=== PATIENT | male | born 1940 | race African-American/Black ===

== ENCOUNTER 2017-10-08 14:38 | Emergency (ER) | payer MEDICARE ==
--- NOTE | 2017-10-08 15:48 | ER Document Report ---
ED Medical Screen (RME) - General Chief Complaint: Abscess Stated Complaint: POSSIBLE CYST ON NECK Time Seen by Provider: 10/08/17 15:45 Notes: 77-year-old male patient boil draining on the back of his neck for the past 4 days. This been a problem for the last 7 years by history. He has not been running a fever. I have greeted and performed a rapid initial assessment of this patient. A comprehensive ED assessment and evaluation of the patient, analysis of test results and completion of the medical decision making process will be conducted by additional ED providers. TRAVEL OUTSIDE OF THE [place] IN LAST 30 DAYS: No - Related Data Allergies/Adverse Reactions: No Known Allergies Allergy (Verified 10/08/17 14:40) Past Medical History - Social History Chew tobacco use (# tins/day): No Frequency of alcohol use: None Drug Abuse: None - Past Medical History Cardiac Medical History: Reports: Hx Hypertension Neurological Medical History: Reports: Hx Seizures Endocrine Medical History: Reports: Hx Hyperthyroidism Renal/ Medical History: Denies: Hx Peritoneal Dialysis Past Surgical History: Reports: Hx Thyroid Surgery - removal - Immunizations Hx Diphtheria, Pertussis, Tetanus Vaccination: No Physical Exam - Vital signs Vitals: Temp Pulse Resp BP Pulse Ox 98.7 F 91 15 155/88 H 97 10/08/17 15:29 10/08/17 15:29 10/08/17 15:29 10/08/17 15:29 10/08/17 15:29 Course - Vital Signs Vital signs: Temp Pulse Resp BP Pulse Ox 98.7 F 91 15 155/88 H 97 10/08/17 15:29 10/08/17 15:29 10/08/17 15:29 10/08/17 15:29 10/08/17 15:29
[2017-10-08] MEDS ORDERED: LIDOCAINE 1% INJ-PF (10 MG/ML) 30 ML SDV INJ ONE (16:59)
--- NOTE | 2017-10-08 17:00 | ER Document Report ---
ED General - General Chief Complaint: Abscess Stated Complaint: POSSIBLE CYST ON NECK Time Seen by Provider: 10/08/17 15:45 Mode of Arrival: Ambulatory Information source: Patient Notes: Patient is a 77 year old AA male who presents with "cyst" to posterior neck that started draining thick yellow pus yesterday. He reports having bump there since 2010. Denies fever, chills, neck pain/stiffness, headache, dizziness. He is not a diabetic, he denies any history of MRSA or previous I&D. TRAVEL OUTSIDE OF THE [place] IN LAST 30 DAYS: No - Related Data Allergies/Adverse Reactions: No Known Allergies Allergy (Verified 10/08/17 14:40) Past Medical History - General Information source: Patient - Social History Smoking Status: Never Smoker Chew tobacco use (# tins/day): No Frequency of alcohol use: None Drug Abuse: None Family History: Reviewed & Not Pertinent Patient has suicidal ideation: No Patient has homicidal ideation: No - Past Medical History Cardiac Medical History: Reports: Hx Hypertension Neurological Medical History: Reports: Hx Seizures Endocrine Medical History: Reports: Hx Hyperthyroidism Renal/ Medical History: Denies: Hx Peritoneal Dialysis Past Surgical History: Reports: Hx Thyroid Surgery - removal - Immunizations Hx Diphtheria, Pertussis, Tetanus Vaccination: No Review of Systems - Review of Systems Constitutional: See HPI EENT: No symptoms reported Cardiovascular: No symptoms reported Respiratory: No symptoms reported Gastrointestinal: No symptoms reported Genitourinary: No symptoms reported Male Genitourinary: No symptoms reported Musculoskeletal: No symptoms reported Skin: See HPI Hematologic/Lymphatic: No symptoms reported Neurological/Psychological: No symptoms reported Physical Exam - Vital signs Vitals: Temp Pulse Resp BP Pulse Ox 98.7 F 91 15 155/88 H 97 10/08/17 15:29 10/08/17 15:29 10/08/17 15:29 10/08/17 15:29 10/08/17 15:29 - Notes Notes: PHYSICAL EXAM: CONSTITUTIONAL: Alert and oriented, well-appearing and in no acute distress. HENT: Normocephalic, atraumatic. Trachea midline. Uvula midline. Moist mucous membranes. EYES: Pupils equal round and reactive to light, EOM intact. Sclera anicteric, conjunctiva are normal. No entrapment. NECK: supple without lymphadenopathy. No midline tenderness or paraspinous muscle spasms. No step-offs or deformities. ROM intact. HEART: Regular rate and rhythm without murmurs. LUNGS: CTAB and equal. No wheezes, rales or rhonchi. EXTREMITIES: Normal range of motion, no pitting edema. No cyanosis. Cap Refill < 3 seconds. NEURO: Cranial nerves grossly intact. Normal sensory/motor exams. PSYCH: Normal mood, normal affect. SKIN: Warm and dry. Normal turgor. 1 cm round fluctuant area to posterior neck Course - Re-evaluation Re-evalutation: 10/08/17 16:58 Patient seen and examined. 1 cm round fluctuant area to posterior neck. VSS, does not appear septic. I&D performed, patient tolerated, iodoform gauze left in place. Wound culture pending. Will treat with abx. Advised to return in 2 days for wound check. At this time, will discharge with return precautions and follow-up recommendations. Verbal discharge instructions given at the bedside and opportunity for questions given. Medication warnings reviewed. Patient is in agreement with this plan and has verbalized understanding of return precautions and the need for primary care follow-up in the next 24-72 hours. - Vital Signs Vital signs: Temp Pulse Resp BP Pulse Ox 98.7 F 91 15 155/88 H 97 10/08/17 15:29 10/08/17 15:29 10/08/17 15:29 10/08/17 15:29 10/08/17 15:29 Procedures - Incision and Drainage Right Posterior Neck Type: Simple Anesthetic type: 1% Lidocaine mL's of anesthetic: 5 Blade size: 11 I&D procedure: Betadine prep applied, Iodoform packing placed, Sterile dressing applied Incision Method: Incision made by scalpel Amount/type of drainage: sanguinous 1 cc Notes: 10/08/17 18:28 Wound probed and loculations broken up. Wound culture obtained. Discharge - Discharge Clinical Impression: Abscess Condition: Stable Disposition: HOME, SELF-CARE Additional Instructions: ABSCESS: You have an abscess (boil). This a pus-forming infection, usually due to staph. Some boils may be left to drain on their own, but most require lancing. From the time the tender lump first appears, it may be three or four days before the abscess is ready to jazmyne. Local heat and rest help at this stage of treatment. An antibiotic may prevent spread of the infection. Once the abscess is opened, packing may be placed into it. This is done so pus is not sealed inside by premature closure of the cavity. The packing will be removed at your follow-up visit or you may be advised to remove it yourself at home. Sometimes this packing must be replaced a few times during healing. The wound will heal with surprisingly little scar. Depending on the size and location of an abscess, healing can take one to four weeks. You may shower and wash the area around the incision site two or three times a day. Antibiotics may be prescribed, but are usually not necessary after an abscess has been drained. If you develop fever, chills, worsening pain, or increasing swelling in the area, call the doctor or return immediately. POST INCISION AND DRAINAGE: You have had an incision made to allow drainage of an abscess. The incision must remain open so that pus and debris can drain from the wound. If the abscess cavity is large, packing is placed. This keeps the tissues from collapsing and trapping pus inside, while the body shrinks the cavity. The packing may need to be replaced every day or two. The physician will instruct you on the packing. Keep a bulky dressing over the area. Replace it if it becomes saturated with blood or pus. Do not disturb the packing (if present). You may shower and cleanse the area with gentle soap and warm water two or three times a day. Local warmth may be soothing, and may promote faster healing. Return if you develop high fever or chills, or if you note spreading redness, increasing swelling, or increasing tenderness. MRSA CELLULITIS: You have an infection of your skin and underlying soft tissues called cellulitis. This is due to bacteria, which can enter through any break in the skin, or even through an irritated hair follicle. Untreated, cellulitis will usually worsen and may form an abscess which requires draining. Although many bacterial organisms can cause cellulitis and abscess formations, the most likely bacteria is Methicillin-Resistant Staph Aureus, or MRSA for short. Antibiotics are required. Usually, warm packs or warm soaks, and elevation of the infected area are recommended. You should start getting better within 24 to 36 hours. Most infections respond quickly to the right medication. Follow-up care is important, however, to check for abscess (boil) formation, unsuspected foreign body, or resistant infection. If you develop fever, chills, or if the area of infection is becoming rapidly more swollen or painful, call the doctor at once. ORAL NARCOTIC MEDICATION: You have been given a prescription for pain control. This medication is a narcotic. It's best taken with food, as nausea can result if taken on an empty stomach. Don't operate machinery or drive within six hours of taking this medication. Do not combine this medicine with alcohol, or with any medication which can cause sedation (such as cold tablets or sleeping pills) unless you get permission from the physician. Narcotics tend to cause constipation. If possible, drink plenty of fluids and eat a diet high in fiber and fruits. CEPHALEXIN: The antibiotic you've been prescribed is a member of the cephalosporin class. This type of antibiotic covers a wide variety of infections, including those of the skin, lungs, and urinary tract. It's useful for staph infections. This antibiotic is slightly similar to the penicillin family. In rare cases , a person who is allergic to penicillin will also be allergic to this medication. If you have had a severe allergic reaction to penicillin, and have not taken this antibiotic since that time, notify your doctor. Antibiotics which cover many germs ("broad spectrum" antibiotics) are more likely to cause diarrhea or "yeast" infections. Women prone to vaginal yeast problems may suffer an attack after taking this antibiotic. In infants, oral thrush (white spots "stuck" on the cheek) or yeast diaper rash may result. See your doctor if these problems occur. Call at once if you develop itching, hives , shortness of breath, or lightheadedness. FOLLOW-UP CARE: Most simple abscesses will not require a follow up visit. If you had packing placed in the abscess, remove it as instructed by the physician. If you have been referred to a physician for follow-up care, call the physicians office for an appointment as you were instructed or within the next two days. If you experience worsening or a significant change in your symptoms, return to the Emergency Department at any time for re-evaluation. Prescriptions: Cephalexin Monohydrate [Keflex 500 mg Capsule] 500 mg PO Q6H 7 Days capsule Hydrocodone/Acetaminophen [Belcher 5-325 mg Tablet] 1 tab PO Q6H PRN #10 tablet PRN Reason: Forms: Elevated Blood Pressure
[2017-10-08 19:04] VITALS: BP 124/91
== END 2017-10-08 19:04 | disposition home or self-care (01) ==
LOC: ER 14:38
PROC: 0H94XZZ Drainage of Neck Skin, External Approach (ICD-10-PCS; principal; 2017-10-08)
DX: L02.11 Cutaneous abscess of neck (principal); I10 Essential (primary) hypertension
CPT/HCPCS: 99283; 87070; 87205; 87075; 87077; 10060; A6266; J3490

== ENCOUNTER 2018-06-21 09:23 | Emergency (ER) | payer MEDICARE ==
--- NOTE | 2018-06-21 09:38 | ER Document Report ---
ED Medical Screen (RME) - General Chief Complaint: Probable Seizure Stated Complaint: POSSIBLE SEIZURE Time Seen by Provider: 06/21/18 09:34 Mode of Arrival: Wheelchair Information source: Patient, Relative Notes: Patient presented to the ED with shortness of breath. Patients O2 sats was in the 80's. He denies any chest pain or abdominal pain. He has history of seizures but there was no seizure activity today. I have greeted and performed a rapid initial assessment of this patient. A comprehensive ED assessment and evaluation of the patient, analysis of test results and completion of the medical decision making process will be conducted by additional ED providers. TRAVEL OUTSIDE OF THE [place] IN LAST 30 DAYS: No - Related Data Allergies/Adverse Reactions: No Known Allergies Allergy (Verified 06/21/18 09:24) Past Medical History - Past Medical History Cardiac Medical History: Reports: Hx Hypertension Neurological Medical History: Reports: Hx Seizures Endocrine Medical History: Reports: Hx Hyperthyroidism Renal/ Medical History: Denies: Hx Peritoneal Dialysis Past Surgical History: Reports: Hx Thyroid Surgery - removal - Immunizations Hx Diphtheria, Pertussis, Tetanus Vaccination: No
--- NOTE | 2018-06-21 09:52 | ER Document Report ---
ED General - General Chief Complaint: Probable Seizure Stated Complaint: POSSIBLE SEIZURE Time Seen by Provider: 06/21/18 09:34 Mode of Arrival: Wheelchair TRAVEL OUTSIDE OF THE [place] IN LAST 30 DAYS: No - HPI Patient complains to provider of: Seizure Onset: Just prior to arrival - 78-year-old man with a history of epilepsy presents for evaluation of a seizure which she had this morning. He notes as a generalized tonic-clonic seizure, his daughter found him after his had noticed for approximately 6-7 minutes he had been seizing with his eyes rolled back, they attempted to wake him up after which time he began to slowly come around, he then was taken outside to try and get some fresh air was able to assist slightly with ambulation but could not fully support himself since then he has had a postictal period but is steadily improving denies any focal numbness or weakness states that he has no complaints at this time. His daughter and son-in-law are with him at this time state that he is back to his normal level of functioning. - Related Data Allergies/Adverse Reactions: No Known Allergies Allergy (Verified 06/21/18 09:24) Past Medical History - General Information source: Patient, Relative - Social History Smoking Status: Former Smoker Family History: Reviewed & Not Pertinent - Past Medical History Cardiac Medical History: Reports: Hx Hypertension Neurological Medical History: Reports: Hx Seizures Endocrine Medical History: Reports: Hx Hyperthyroidism Renal/ Medical History: Denies: Hx Peritoneal Dialysis Past Surgical History: Reports: Hx Thyroid Surgery - removal - Immunizations Hx Diphtheria, Pertussis, Tetanus Vaccination: No Review of Systems - Review of Systems -: Yes All other systems reviewed and negative Physical Exam - Vital signs Vitals: Temp Pulse Resp BP Pulse Ox 98.1 F 103 H 18 107/63 82 L 06/21/18 09:29 06/21/18 09:29 06/21/18 09:29 06/21/18 09:29 06/21/18 09:29 - General General appearance: Appears well In distress: None - HEENT Head: Normocephalic Eyes: Normal Conjunctiva: Normal Cornea: Normal Extraocular movements intact: Yes - Respiratory Respiratory status: No respiratory distress Chest status: Nontender Breath sounds: Normal Chest palpation: Normal - Cardiovascular Rhythm: Regular Heart sounds: Normal auscultation Murmur: No - Abdominal Inspection: Normal Distension: No distension Tenderness: Nontender - Back Back: Normal - Extremities General upper extremity: Normal inspection, Nontender, Normal ROM, Normal strength General lower extremity: Normal inspection, Nontender, Normal ROM, Normal strength - Neurological Neuro grossly intact: Yes Cognition: Normal Orientation: AAOx4 [place] Coma Scale Eye Opening: Spontaneous [place] Coma Scale Verbal: Oriented [place] Coma Scale Motor: Obeys Commands [place] Coma Scale Total: 15 Speech: Normal Cranial nerves: Normal - Psychological Associated symptoms: Normal affect Course - Re-evaluation Re-evalutation: 06/21/18 17:52 This 78-year-old man presented for evaluation of a seizure today and a history of known seizures. On examination he is overall well-appearing, will plan at this time for this patient to undergo screening labs. Patient underwent chest x-ray. Has atelectasis, no systemic's signs of infection. Patient's overall well-appearing, he is back at his neurologic baseline. Given his overall well appearance current plan is for this patient to undergo brief period of observation in the emergency department. He does have all his medications at this time, is not out of any antiepileptic medications. Current plan is for this patient undergo discharge with return precautions after a period of being observed with his neurologic baseline. - Vital Signs Vital signs: Temp Pulse Resp BP Pulse Ox 98.1 F 103 H 20 119/75 90 L 06/21/18 09:29 06/21/18 09:29 06/21/18 12:01 06/21/18 12:01 06/21/18 12:01 - Laboratory Result Diagrams: 06/21/18 09:40 06/21/18 09:40 Laboratory results interpreted by me: 06/21/18 06/21/18 06/21/18 09:40 09:40 09:40 RDW 14.1 H Plt Count 144 L Chloride 114 H Carbon Dioxide 21 L BUN 23 H Creatinine 1.44 H Est GFR ( Amer) 58 L Est GFR (Non-Af Amer) 48 L Glucose 113 H Direct Bilirubin 0.5 H ALT 16 L NT-Pro-B Natriuret Pep 572 H Discharge - Discharge Clinical Impression: Seizure, Cough Condition: Good Disposition: HOME, SELF-CARE Instructions: Seizure, Known Epileptic ([facility]) Additional Instructions: Your seen today in the emergency department after your seizure, you have a known history of seizures in the past, no obvious other causes identified as a cause of your seizure. Continue to take your normal seizure medications as previously. If you have worsening fevers, shortness of breath chest pain or new numbness or weakness or seizures which return should return to the emergency room as it may represent a worsening or more serious condition otherwise follow-up with your primary physician this week for evaluation.
[2018-06-21 09:57] LABS: ABSOLUTE EOSINOPHILS # (AUTO) 0.2 10^3/uL (0.0-0.6); ABSOLUTE LYMPHOCYTES (AUTO) 1.8 10^3/uL (0.5-4.7); ABSOLUTE MONOCYTES (AUTO) 0.3 10^3/uL (0.1-1.4); BASOPHILS % (AUTO) 0.8 % (0-2); EOSINOPHILS % (AUTO) 4.7 % (0-6); HEMATOCRIT 42.8 % (37.9-51.0); HEMOGLOBIN 14.3 g/dL (13.5-17.0); MEAN CORPUSCULAR HEMOGLOBIN 31.7 pg (27.0-33.4); MEAN CORPUSCULAR HGB CONC 33.5 g/dL (32.0-36.0); MEAN CORPUSCULAR VOLUME 95 fl (80-97); PLATELET COUNT 144 10^3/uL (150-450); RED BLOOD COUNT 4.51 10^6/uL (4.35-5.55); RED CELL DISTRIBUTION WIDTH 14.1 % (11.5-14.0); SEGMENTED NEUTROPHILS % (AUTO) 45.5 % (42-78); TOTAL CELLS COUNTED % (AUTO) 100 %; WHITE BLOOD COUNT 4.4 10^3/uL (4.0-10.5)
[2018-06-21 10:12] LABS: ALANINE AMINOTRANSFERASE 16 U/L (21-72); ALBUMIN 3.6 g/dL (3.5-5.0); ALKALINE PHOSPHATASE 70 U/L (38-126); ANION GAP 8 (5-19); ASPARTATE AMINO TRANSFERASE 18 U/L (17-59); BILIRUBIN,DIRECT 0.5 mg/dL (0.0-0.4); BILIRUBIN,TOTAL 0.9 mg/dL (0.2-1.3); BLOOD UREA NITROGEN 23 mg/dL (7-20); CALCIUM 9.3 mg/dL (8.4-10.2); CARBON DIOXIDE 21 mmol/L (22-30); CHLORIDE 114 mmol/L (98-107); GLUCOSE 113 mg/dL (75-110); POTASSIUM 3.8 mmol/L (3.6-5.0); SODIUM 143.3 mmol/L (137-145); TOTAL PROTEIN 6.8 g/dL (6.3-8.2)
[2018-06-21 10:24] LABS: NT PRO BNP 572 pg/mL (<450)
[2018-06-21 10:25] LABS: TROPONIN I < 0.012 ng/mL
--- NOTE | 2018-06-21 10:31 | RADIOLOGY REPORT (SQ) ---
EXAM DESCRIPTION: CHEST SINGLE VIEW COMPLETED DATE/TIME: 06/21/2018 10:14 am REASON FOR STUDY: SOB COMPARISON: 04/12/2010 EXAM PARAMETERS: NUMBER OF VIEWS: One view. TECHNIQUE: Single frontal radiographic view of the chest acquired. RADIATION DOSE: NA LIMITATIONS: None. FINDINGS: LUNGS AND PLEURA: Lungs are hyperinflated and hyperlucent. Airspace disease medial right lung base, atelectasis versus pneumonia. This should be followed to ra diographic clearing. No pleural effusion. No pneumothorax. MEDIASTINUM AND HILAR STRUCTURES: No masses. Contour normal. HEART AND VASCULAR STRUCTURES: Heart normal in size. Normal vasculature. BONES: No acute findings. HARDWARE: Clips post thyroidectomy OTHER: No other significant finding. IMPRESSION: Obstructive lung disease Airspace disease medial right lung base atelectasis versus pneumonia. TECHNICAL DOCUMENTATION: JOB ID: [id number] [email or web address]- All Rights Reserved Reading location - IP/workstation name: [email or web address]
[2018-06-21 12:10] VITALS: BP 119/75
--- NOTE | 2018-06-21 21:21 | EKG REPORT ---
SEVERITY:- ABNORMAL ECG - SINUS RHYTHM RIGHT BUNDLE BRANCH BLOCK : Confirmed by: Haydee Hernandez 21-Jun-2018 21:20:45
--- NOTE | 2018-06-23 05:18 | EKG REPORT ---
SEVERITY:- ABNORMAL ECG - SINUS RHYTHM PROBABLE LEFT ATRIAL ABNORMALITY RBBB AND LAFB : Confirmed by: Haydee Hernandez 23-Jun-2018 05:17:44
== END 2018-06-21 12:19 | disposition home or self-care (01) ==
LOC: ER 09:23
DX: G40.909 Epilepsy, unspecified, not intractable, without status epilepticus (principal); R05 Cough; Z87.891 Personal history of nicotine dependence; I10 Essential (primary) hypertension
CPT/HCPCS: 36415; 71045; 80053; 83880; 84484; 85025; 93005; 93010; 99284

== ENCOUNTER 2018-06-22 11:35 | Emergency (ER) | payer MEDICARE ==
[~2018-06-22 11:35] MED LIST: EPINEPHRINE INJ 1 MG/10 ML DISP.SYRIN ONE; SODIUM BICARBONATE 8.4% INJ 50 MEQ/50 ML DISP.SYRIN ONE
--- NOTE | 2018-06-22 11:52 | ER Document Report ---
ED Fall - General Stated Complaint: SEIZURE Time Seen by Provider: 06/22/18 11:44 Notes: 78-year-old male to emergency department for evaluation of post arrest. Patient reportedly was on the toilet. Stood up and then collapsed. Hit his head and face on the doorknob and floor. EMS was called when patient became unresponsive. Did not appear to be breathing. When EMS arrived patient was pulseless and in PEA arrest. Immediate access via intraosseous line was started. CPR was begun. There were 5 doses of epinephrine given in route. Return of circulation obtained. Patient was being bagged on arrival. Patient was unresponsive with a GCS of 3 and no neurological response. TRAVEL OUTSIDE OF THE [place] IN LAST 30 DAYS: No - HPI Occurred: Just prior to arrival Where: Home - Related data Allergies/Adverse Reactions: No Known Allergies Allergy (Verified 06/21/18 09:24) Past Medical History - General Information source: Relative, [facility] Records - Social History Smoking Status: Smoker,Current Status Unk Lives with: Family Family History: Reviewed & Not Pertinent - Past Medical History Cardiac Medical History: Reports: Hx Hypertension Neurological Medical History: Reports: Hx Seizures Endocrine Medical History: Reports: Hx Hyperthyroidism Renal/ Medical History: Denies: Hx Peritoneal Dialysis Past Surgical History: Reports: Hx Thyroid Surgery - removal - Immunizations Hx Diphtheria, Pertussis, Tetanus Vaccination: No Review of Systems - Review of Systems -: Yes ROS unobtainable due to patient's medical condition Physical Exam - Vital signs Vitals: Pulse Ox 87 L 06/22/18 11:55 Interpretation: Hypotensive Notes: Gilman with GCS of 3 on arrival. - Notes Notes: Patient with pulses on arrival. Heart rate in the 60s. Palpable pulse with GCS of 3 and no spontaneous neurological response. - HEENT Head: Other - he has large amount of subcutaneous emphysema and periorbital emphysema with significant exophthalmos noted bilaterally. Both pupils appear to be 1-2 mm bilaterally. The right eye is extremely inflated and the subcutaneous tissue. The left eye is remarkably exophthalmic as well there is crepitus noted in the anterior neck area with palpable subcutaneous emphysema in the anterior chest and anterior neck. Is no corneal reflex. There is no posterior pharyngeal gag reflex. Large amount of blood in the posterior pharynx. - Respiratory Notes: Sub-cutaneous emphysema noted to the chest. There is an ET tube in place 7.5 secured at 25 at the lip. There is breath sounds bilaterally with bagging. - Cardiovascular Rhythm: Other - Crackles noted has a normal sinus rhythm. Carotid and audible pulses present. No obvious or significant murmur. There is - Abdominal Inspection: Normal Distension: No distension Bowel sounds: Normal Organomegaly: No organomegaly - Back Back: Normal, Nontender. No: Deformity/step-off, CVA tenderness - Extremities General upper extremity: Normal inspection, Nontender, Normal color, Normal temperature General lower extremity: Normal inspection, Nontender, Normal color, Normal temperature, Other - Intraosseous line noted in the left lower extremity. No: Domonique's sign - Neurological Neuro grossly intact: No - No significant neurological activity appreciated except brainstem activity [place] Coma Scale Eye Opening: None [place] Coma Scale Verbal: None [place] Coma Scale Motor: None [place] Coma Scale Total: 3 - Skin Skin Temperature: Warm Skin Moisture: Dry Skin Color: Normal Course - Re-evaluation Re-evalutation: 06/22/18 11:59 Patient with return of circulation. Blood pressure currently 115/75. Heart rate was in the 70s. EKG was obtained. Patient has a right bundle branch block. Does have some T-wave inversions diffusely as well as some ST segment depressions. No obvious ST elevation. Immediate attention was directed to the airway. Airways was established and secured. Stat chest x-ray performed. No tension pneumothorax was seen. Ratliff was placed. 16-gauge IV established. Patient immediately transferred to CT scan for neuroimaging and chest imaging as well as C-spine imaging. Patient placed in a collar. Accu-Chek in the field with blood sugar over 100. 06/22/18 12:01 06/22/18 13:[address] 06/22/18 11:46 IMPRESSION: Pulmonary edema Bilateral lower lobe collapse and consolidation Multiple anterior rib fractures, pneumomediastinum Endotracheal and nasogastric tubes in good positioning Chest X-Ray 06/22/18 11:46 IMPRESSION: Pulmonary edema Endotracheal tube tip 6 cm above the eulogio Pneumomediastinum without plain film evidence of pneumothorax Head CT 06/22/18 11:46 IMPRESSION: Motion artifact No acute intracranial changes Right facial and deep neck, and preseptal orbital soft tissue air EVIDENCE OF ACUTE STROKE: NO. Cervical Spine CT 06/22/18 11:50 IMPRESSION: No cervical spine fracture or malalignment Facial Bones CT 06/22/18 11:50 IMPRESSION: No acute fracture Soft tissue air from pneumomediastinum dissecting into the facial and neck soft tissues 06/22/18 14:39 While attempting to transfer patient had multiple discussions with [facility] trauma service, followed [facility] at [facility]. While on the phone patient went into PEA arrest again. CPR was begun. Patient received epinephrine. Return of pulses. Amp of bicarb given. Patient went into PEA with a arrest again. CPR restarted. Long discussion had with family at that time about the grave prognosis. The vending machine operator I consulted over the phone recommended no further action. Patient was too unstable for transfer. When patient went back into PEA arrest for the third time patient was allowed to . Patient had no spontaneous respirations. No pulses. No significant neurological activity. The ventilator and the monitors were turned off. Time of 1445. Family members at bedside at this time. Attempting to find patient's - Vital Signs Vital signs: Temp Pulse Resp BP Pulse Ox 20 52/41 L 64 L 06/22/18 14:22 06/22/18 14:22 06/22/18 14:22 - Laboratory Result Diagrams: 06/22/18 11:45 06/22/18 11:45 Laboratory results interpreted by me: 06/22/18 06/22/18 06/22/18 11:45 11:45 11:45 RBC 4.08 L Hgb 12.8 L MCV 100 H D MCHC 31.3 L RDW 14.9 H Plt Count 84 L Carbonic Acid 1.68 H ABG pH 6.81 L* ABG pCO2 55.9 H ABG pO2 104.8 H ABG HCO3 8.8 L ABG Total CO2 10.5 L ABG O2 Saturation 90.7 L Potassium 3.4 L Chloride 113 H Carbon Dioxide 16 L BUN 21 H Creatinine 1.99 H Est GFR ( Amer) 40 L Est GFR (Non-Af Amer) 33 L Glucose 245 H Direct Bilirubin 0.6 H AST 223 H ALT 143 H Total Protein 5.7 L Albumin 2.8 L Urine Protein Urine Blood Urine Urobilinogen 06/22/18 06/22/18 11:45 13:15 RBC Hgb MCV MCHC RDW Plt Count Carbonic Acid 1.64 H ABG pH 6.97 L* ABG pCO2 54.4 H ABG pO2 64.5 L ABG HCO3 12.3 L ABG Total CO2 14.0 L ABG O2 Saturation 78.4 L Potassium Chloride Carbon Dioxide BUN Creatinine Est GFR ( Amer) Est GFR (Non-Af Amer) Glucose Direct Bilirubin AST ALT Total Protein Albumin Urine Protein 100 H Urine Blood MODERATE H Urine Urobilinogen 2.0 H - EKG Interpretation by Me EKG shows normal: Sinus rhythm, [place], QRS Complexes, ST-T Waves [place]/QRS: RBBB Procedures - Intubation Orotracheal Airway evaluation: Normal anatomy Mallampati Classification: Class 2 Medications: Other - none Blade type: Anita Blade size: 3 Equipment used: Glidescope ETT size: 7.5 ETT secured at: Lips ETT secured at (cm): 25 Breath Sounds after Intubation: Equal End tidal CO2 confirmed: Yes Ventilator settings: SIMV Post Intubation Xray: Yes Intubation Complications: No complications Critical Care Note - Critical Care Note Total time excluding time spent on procedures (mins): 90 Comments: Acute traumatic fall, post arrest, consultation with specialists, coordination of care, CPR Discharge - Discharge Clinical Impression: PEA (Pulseless electrical activity), Cardiac arrest, Pneumomediastinum Disposition:
[2018-06-22 12:01] LABS: ARTERIAL BLOOD BASE EXCESS -25.8 mmol/L; ARTERIAL BLOOD H2CO3 1.68 mmol/L (1.05-1.35); ARTERIAL BLOOD HCO3 8.8 mmol/L (20-24); ARTERIAL BLOOD O2 SATURATION 90.7 % (94-98); ARTERIAL BLOOD PCO2 55.9 mmHg (35-45); ARTERIAL BLOOD PO2 104.8 mmHg (80-100); ARTERIAL BLOOD TOTAL CO2 10.5 mmol/L (23-27)
[2018-06-22 12:02] LABS: ARTERIAL BLOOD FIO2 100%
[2018-06-22 12:03] LABS: ARTERIAL BLOOD PH 6.81 (7.35-7.45)
[2018-06-22 12:14] LABS: ABSOLUTE BASOPHILS # (AUTO) 0.1 10^3/uL (0.0-0.2); ABSOLUTE EOSINOPHILS # (AUTO) 0.1 10^3/uL (0.0-0.6); ABSOLUTE LYMPHOCYTES (AUTO) 2.4 10^3/uL (0.5-4.7); ABSOLUTE MONOCYTES (AUTO) 0.2 10^3/uL (0.1-1.4); ABSOLUTE NEUT (AUTO) 4.6 10^3/uL (1.7-8.2); APPEARANCE,URINE CLEAR; BASOPHILS % (AUTO) 0.7 % (0-2); BILIRUBIN,URINE NEGATIVE (NEGATIVE); COLOR,URINE YELLOW; EOSINOPHILS % (AUTO) 1.2 % (0-6); GLUCOSE, URINE NEGATIVE (NEGATIVE); HEMATOCRIT 40.9 % (37.9-51.0); HEMOGLOBIN 12.8 g/dL (13.5-17.0); KETONES,URINE NEGATIVE (NEGATIVE); LYMPHOCYTES % (AUTO) 32.6 % (13-45); MEAN CORPUSCULAR HEMOGLOBIN 31.4 pg (27.0-33.4); MEAN CORPUSCULAR HGB CONC 31.3 g/dL (32.0-36.0); MONOCYTES % (AUTO) 3.2 % (3-13); NITRITE,URINE NEGATIVE (NEGATIVE); PROTEIN,URINE 100 mg/dL (NEGATIVE); RED BLOOD COUNT 4.08 10^6/uL (4.35-5.55); RED CELL DISTRIBUTION WIDTH 14.9 % (11.5-14.0); SEGMENTED NEUTROPHILS % (AUTO) 62.3 % (42-78); TOTAL CELLS COUNTED % (AUTO) 100 %; URINE SPECIFIC GRAVITY 1.024; WHITE BLOOD COUNT 7.5 10^3/uL (4.0-10.5)
[2018-06-22 12:15] LABS: LEUKOCYTE ESTERASE,URINE NEGATIVE (NEGATIVE)
[2018-06-22] MEDS ORDERED: MIDAZOLAM 2 MG/2 ML INJ IV ONE (12:16)
[2018-06-22] MEDS ORDERED: MIDAZOLAM HCL INJ 5 MG/1 ML VIAL ONE (12:16)
[2018-06-22] MEDS ORDERED: MIDAZOLAM HCL 50 MG/100 ML RTUINJ IV PRN (12:16)
--- NOTE | 2018-06-22 12:18 | RADIOLOGY REPORT (SQ) ---
EXAM DESCRIPTION: CHEST SINGLE VIEW COMPLETED DATE/TIME: 06/22/2018 12:00 pm REASON FOR STUDY: resp arrest COMPARISON: 08/17/2013 EXAM PARAMETERS: NUMBER OF VIEWS: One view. TECHNIQUE: Single frontal radiographic view of the chest acquired. RADIATION DOSE: NA LIMITATIONS: None. FINDINGS: LUNGS AND PLEURA: Diffuse bilateral pulmonary edema pattern. No pleural effusions. No gr oss pneumothorax although there is chest wall air over the left pectoralis muscle. MEDIASTINUM AND HILAR STRUCTURES: Mediastinal air in the thoracic inlet region HEART AND VASCULAR STRUCTURES: Heart normal in size. Normal vasculature. BONES: No acute findings. HARDWARE: Endotracheal tube tip 6 cm above the eulogio. Nasogastric tube tip and side port in the sto mach. Defibrillator leads over the chest. OTHER: No other significant finding. IMPRESSION: Pulmonary edema Endotracheal tube tip 6 cm above the eulogio Pneumomediastinum without plain film evidence of pneumothorax TECHNICAL DOCUMENTATION: JOB ID: [id number] [employer]- All Rights Reserved Reading location - IP/workstation name: [email or web address]
[2018-06-22] MEDS ORDERED: RINGERS SOLUTION,LACTATED 1,000 ML IV ONE (12:19)
[2018-06-22 12:21] LABS: ALANINE AMINOTRANSFERASE 143 U/L (21-72); ALBUMIN 2.8 g/dL (3.5-5.0); ALKALINE PHOSPHATASE 79 U/L (38-126); ANION GAP 15 (5-19); ASPARTATE AMINO TRANSFERASE 223 U/L (17-59); BILIRUBIN,DIRECT 0.6 mg/dL (0.0-0.4); BILIRUBIN,TOTAL 0.8 mg/dL (0.2-1.3); BLOOD UREA NITROGEN 21 mg/dL (7-20); CALCIUM 8.9 mg/dL (8.4-10.2); CARBON DIOXIDE 16 mmol/L (22-30); CHLORIDE 113 mmol/L (98-107); CREATINE KINASE 109 U/L (55-170); GLUCOSE 245 mg/dL (75-110); POTASSIUM 3.4 mmol/L (3.6-5.0); SODIUM 144.2 mmol/L (137-145); TOTAL PROTEIN 5.7 g/dL (6.3-8.2)
--- NOTE | 2018-06-22 12:21 | RADIOLOGY REPORT (SQ) ---
EXAM DESCRIPTION: CT HEAD WITHOUT COMPLETED DATE/TIME: 06/22/2018 12:03 pm REASON FOR STUDY: resp arrest COMPARISON: 08/17/2013, 05/08/2008 TECHNIQUE: Axial images acquired through the brain without intravenous contrast. Images reviewed wi th bone, brain and subdural windows. Additional sagittal and coronal reconstructions were generated. Images stored on PACS. All CT scanners at this facility use dose modulation, iterative reconstruction, and/or weight based d osing when appropriate to reduce radiation dose to as low as reasonably achievable (ALARA). [facility]: Dose Right [facility]: CareDose [facility]: Dose Right [facility]: Teradose 4D [facility]: [facility] RADIATION DOSE: CT Rad equipment meets quality standard of care and radiation dose reduction techniq ues were employed. CTDIvol: 53.2 mGy. DLP: 991 mGy-cm. mGy. LIMITATIONS: Motion artifact FINDINGS: VENTRICLES: Normal size and contour. CEREBRUM: No CT evidence of acute large territory ischemic change, acute intracranial hemorrhage, mas s effect, or midline shift. Calcified basal ganglia CEREBELLUM: No masses. No hemorrhage. No alteration of density. No evidence for acute infarction. EXTRAAXIAL SPACES: No fluid collections. No masses. ORBITS AND GLOBE: No intra- or extraconal masses. Normal contour of globe without masses. Bilateral proptosis. No retro bulbar hematoma CALVARIUM: No fracture. PARANASAL SINUSES: No fluid or mucosal thickening. SOFT TISSUES: Extensive soft tissue subcutaneous air is present extending into the right infratempora l fossa and preseptal orbital soft tissues. There is also air in deep tissues along the prevertebral space and parapharyngeal spaces likely extending up from pneumomediastinum OTHER: No other significant finding. IMPRESSION: Motion artifact No acute intracranial changes Right facial and deep neck, and preseptal orbital soft tissue air EVIDENCE OF ACUTE STROKE: NO. COMMENT: Quality ID # [id number]: Final reports with documentation of one or more dose reduction techniques (e.g., Automated exposure control, adjustment of the mA and/or kV according to patient size, use of iterative reconstruction technique) TECHNICAL DOCUMENTATION: JOB ID: [id number] [employer] All Rights Reserved Reading location - IP/workstation name: [facility]
[2018-06-22] MEDS ORDERED: NORMAL SALINE 1000 ML 1,000 ML IV ONE ×2 (12:22→15:26)
--- NOTE | 2018-06-22 12:25 | RADIOLOGY REPORT (SQ) ---
EXAM DESCRIPTION: CT FACIAL AREA WITHOUT COMPLETED DATE/TIME: 06/22/2018 12:06 pm REASON FOR STUDY: fall, code, subq emphy COMPARISON: CT chest same date TECHNIQUE: Noncontrasted images through the facial bones and orbits windowed for bone and soft tissu e. Additional coronal and sagittal reconstructed images reviewed. All images stored on PACS. All CT scanners at this facility use dose modulation, iterative reconstruction, and/or weight based d osing when appropriate to reduce radiation dose to as low as reasonably achievable (ALARA). [facility]: Dose Right [facility]: CareDose [facility]: Dose Right [facility]: Teradose 4D [facility]: [employer] RADIATION DOSE: CT Rad equipment meets quality standard of care and radiation dose reduction techniq ues were employed. CTDIvol: 30.4 mGy. DLP: 608 mGy-cm. mGy. LIMITATIONS: None. FINDINGS: FACIAL BONES: No fracture or bone lesion. ORBITS: Intact. No fracture. Symmetric intact globes and retroorbital soft tissues. Patient does h ave proptosis without evidence of retro bulbar hematoma. There is extensive right preseptal orbital air, dissecting from a pneumomediastinum PARANASAL SINUSES: Clear. No significant mucosal thickening, mass or fluid. No nasal polyps. Maxill elyssa sinus outlets are patent. SOFT TISSUES: No mass or edema. Extensive soft tissue air in the preseptal orbital soft tissues, rig ht and left facial superficial soft tissues and along the right and left parapharyngeal spaces, disse cting up from air in the mediastinum INFERIOR BRAIN: Limited view. No acute findings. OTHER: No other significant finding. IMPRESSION: No acute fracture Soft tissue air from pneumomediastinum dissecting into the facial and neck soft tissues TECHNICAL DOCUMENTATION: JOB ID: [id number] Quality ID # [id number]: Final reports with documentation of one or more dose reduction techniques (e.g., Au tomated exposure control, adjustment of the mA and/or kV according to patient size, use of iterative reconstruction technique) 2010 [employer]- All Rights Reserved Reading location - IP/workstation name: [email or web address]
[2018-06-22] MEDS ORDERED: LEVETIRACETAM 1000 MG/NACL-ISO 1,000 MG/100 ML RTUPB IV SCH (12:30)
--- NOTE | 2018-06-22 12:30 | RADIOLOGY REPORT (SQ) ---
EXAM DESCRIPTION: CT CHEST WITHOUT COMPLETED DATE/TIME: 06/22/2018 12:11 pm REASON FOR STUDY: resp arrest COMPARISON: CT soft tissue neck, CT face, CT brain same day TECHNIQUE: CT scan performed of the chest without intravenous contrast. Images reviewed with lung, soft tissue and bone windows. Reconstructed coronal and sagittal MPR images reviewed. All images st ored on PACS. All CT scanners at this facility use dose modulation, iterative reconstruction, and/or weight based d osing when appropriate to reduce radiation dose to as low as reasonably achievable (ALARA). [facility]: Dose Right [facility]: CareDose [facility]: Dose Right [facility]: Teradose 4D [facility]: [employer] RADIATION DOSE: CT Rad equipment meets quality standard of care and radiation dose reduction techniq ues were employed. CTDIvol: 14.4 mGy. DLP: 567 mGy-cm. mGy. LIMITATIONS: No technical limitations. FINDINGS: LUNGS AND PLEURA: No pneumothorax or pleural effusion. There is pulmonary edema throughout the bilateral upper lobes. Dense consolidation is present in the right and left posterior lower lobes. Airways are patent. Endotracheal tube is 5 to 6 cm above the eulogio. HILAR AND MEDIASTINAL STRUCTURES: There is pneumomediastinum at the thoracic inlet. No adenopathy. HEART AND VASCULAR STRUCTURES: No aneurysm. No pericardial effusion. UPPER ABDOMEN: Motion. Multiple right renal cortical cysts upper pole kidney. Nasogastric tube tip and side port in the stomach THYROID AND OTHER SOFT TISSUES: Post thyroidectomy. There is diffuse upper mediastinal air, supracla vicular air extending into the neck deep soft tissues BONES: Multiple anterior bilateral rib fractures. There is motion artifact on today's scan, sternal fracture could not be excluded HARDWARE: Endotracheal tube tip 6 cm above the eulogio. Nasogastric tube tip and side port in the sto mach OTHER: No other significant findings. IMPRESSION: Pulmonary edema Bilateral lower lobe collapse and consolidation Multiple anterior rib fractures, pneumomediastinum Endotracheal and nasogastric tubes in good positioning TECHNICAL DOCUMENTATION: JOB ID: [id number] Quality ID # [id number]: Final reports with documentation of one or more dose reduction techniques (e.g., Au tomated exposure control, adjustment of the mA and/or kV according to patient size, use of iterative reconstruction technique) 2010 [employer]- All Rights Reserved Reading location - IP/workstation name: [email or web address]
[2018-06-22 12:32] LABS: CREATINE KINASE MB 1.84 ng/mL (<4.55)
--- NOTE | 2018-06-22 12:33 | RADIOLOGY REPORT (SQ) ---
EXAM DESCRIPTION: CT CERVICAL SPINE WITHOUT COMPLETED DATE/TIME: 06/22/2018 12:07 pm REASON FOR STUDY: fall, code, subq emphy code post resuscitation with diffuse subcutaneous air COMPARISON: None. TECHNIQUE: Axial images acquired through the cervical spine without intravenous contrast. Images re viewed with lung, soft tissue and bone windows. Reconstructed coronal and sagittal MPR images review ed. Images stored on PACS. All CT scanners at this facility use dose modulation, iterative reconstruction, and/or weight based d osing when appropriate to reduce radiation dose to as low as reasonably achievable (ALARA). [facility]: Dose Right [facility]: CareDose [facility]: Dose Right [facility]: Teradose 4D [facility]: [employer] RADIATION DOSE: CT Rad equipment meets quality standard of care and radiation dose reduction techniq ues were employed. CTDIvol: 20.0 mGy. DLP: 414 mGy-cm. mGy. LIMITATIONS: Motion artifact FINDINGS: ALIGNMENT: Anatomic. MINERALIZATION: Normal. VERTEBRAL BODIES: No fractures or dislocation. DISCS: Multilevel disc space narrowing with osteophytes. FACETS, LATERAL MASSES, POSTERIOR ELEMENTS: Facet arthropathy. No fractures. No dislocation. No ac lary findings. HARDWARE: None in the spine. VISUALIZED RIBS: Anterior rib fractures. LUNG APICES AND SOFT TISSUES: Pulmonary edema in the upper lobes. Diffuse subcutaneous air throughou t the neck soft tissues OTHER: No other significant finding. IMPRESSION: No cervical spine fracture or malalignment TECHNICAL DOCUMENTATION: JOB ID: [id number] Quality ID # [id number]: Final reports with documentation of one or more dose reduction techniques (e.g., Au tomated exposure control, adjustment of the mA and/or kV according to patient size, use of iterative reconstruction technique) 2010 [employer]- All Rights Reserved Reading location - IP/workstation name: [email or web address]
[2018-06-22 12:34] LABS: TROPONIN I 0.066 ng/mL
[2018-06-22] MEDS ORDERED: NOREPINEPHRINE BITARTRATE INJ/PF 4 MG/4 ML SDV IV ONE (12:40)
[2018-06-22 12:41] LABS: MEAN CORPUSCULAR VOLUME 100 fl (80-97); PLATELET COUNT 84 10^3/uL (150-450)
[2018-06-22] MEDS ORDERED: ROCURONIUM BROMIDE INJ 50 MG/5 ML VIAL IV ONE ×2 (13:13→15:56)
[2018-06-22] MEDS ORDERED: KETAMINE HCL INJ 500 MG/10 ML VIAL IV ONE (13:20)
[2018-06-22] MEDS ORDERED: KETAMINE HCL INJ 500 MG/10 ML VIAL ONE (13:20)
[2018-06-22 13:36] LABS: ARTERIAL BLOOD BASE EXCESS -19.3 mmol/L; ARTERIAL BLOOD H2CO3 1.64 mmol/L (1.05-1.35); ARTERIAL BLOOD HCO3 12.3 mmol/L (20-24); ARTERIAL BLOOD O2 SATURATION 78.4 % (94-98); ARTERIAL BLOOD PCO2 54.4 mmHg (35-45); ARTERIAL BLOOD PO2 64.5 mmHg (80-100)
[2018-06-22 13:38] LABS: ARTERIAL BLOOD FIO2 100%
[2018-06-22 13:39] LABS: ARTERIAL BLOOD PH 6.97 (7.35-7.45)
[2018-06-22] MEDS ORDERED: EPINEPHRINE INJ/PF 1 MG/1 ML AMPULE ONE (14:02)
[2018-06-22] MEDS ORDERED: CALCIUM GLUCONATE 1000 MG/10 ML INJ IV ONE (14:10)
[2018-06-22] MEDS ORDERED: SODIUM BICARBONATE 8.4% INJ 50 MEQ/50 ML DISP.SYRIN ONE (14:10)
--- NOTE | 2018-06-22 14:13 | RADIOLOGY REPORT (SQ) ---
EXAM DESCRIPTION: CHEST SINGLE VIEW COMPLETED DATE/TIME: 06/22/2018 1:55 pm REASON FOR STUDY: t2 tube placement. COMPARISON: AP chest 06/22/2018, [address] chest 06/22/2018, 1205 hours EXAM PARAMETERS: NUMBER OF VIEWS: One view. TECHNIQUE: Single frontal radiographic view of the chest acquired. RADIATION DOSE: NA LIMITATIONS: None. FINDINGS: LUNGS AND PLEURA: Increasing bilateral diffuse alveolar edema. No pneumothorax. No pleural effusions. MEDIASTINUM AND HILAR STRUCTURES: Persistent mediastinal air and supraclavicular/bilateral chest wall air HEART AND VASCULAR STRUCTURES: No cardiomegaly BONES: No acute findings. HARDWARE: Endotracheal tube tip midtrachea. Nasogastric tube tip and side port in the stomach OTHER: No other significant finding. IMPRESSION: Increasing bilateral pulmonary edema compared to earlier chest film today TECHNICAL DOCUMENTATION: JOB ID: [id number] [employer]- All Rights Reserved Reading location - IP/workstation name: [facility]
[2018-06-22 14:26] VITALS: BP 52/41
[2018-06-22] MEDS ORDERED: DEXTROSE 5%-WATER 250 ML with NOREPINEPHRINE BITARTRATE 4 MG IV PRN ×2 (15:25)
[2018-06-22] MEDS ORDERED: DEXTROSE 5%-WATER 250 ML with EPINEPHRINE/PF 1 MG IV PRN ×2 (15:26)
== END 2018-06-22 16:54 | disposition expired ==
LOC: ER 11:35
DX: I46.9 Cardiac arrest, cause unspecified (principal); J98.2 Interstitial emphysema; S22.49XA Multiple fractures of ribs, unspecified side, initial encounter for closed fracture; S09.93XA Unspecified injury of face, initial encounter; S09.90XA Unspecified injury of head, initial encounter; W18.11XA Fall from or off toilet without subsequent striking against object, initial encounter; I45.10 Unspecified right bundle-branch block; I10 Essential (primary) hypertension
CPT/HCPCS: 99291; 99292; 92950; 51702; 96365; 36415; 87086; 82553; 82803; 82550; 85025; 80053; 81001; 84484; 71045; 70450; 70486; 71250; 72125; 94660; 31500; L0172; J3490 ×5; J0171 ×2; J2250; J1953; J0610